=== PATIENT | male | born 1995 | race Caucasian/White ===

== ENCOUNTER 2018-08-22 22:05 | Emergency (ER) | payer OTHER ==
[2018-08-22] MEDS: HYDROCODONE/APAP (5/325) TAB PO (23:00)
== END 2018-08-23 01:18 | disposition home or self-care (01) ==
LOC: FTE 22:05
DX: S62.634A Displaced fracture of distal phalanx of right ring finger, initial encounter for closed fracture (principal); X50.1XXA Overexertion from prolonged static or awkward postures, initial encounter; Y92.89 Other specified places as the place of occurrence of the external cause
CPT/HCPCS: 29130; 73140; 99283-25